=== PATIENT | male | born 1990 | race American Indian/Alaskan Native ===

== ENCOUNTER 2020-04-15 17:09 | Emergency (ER) | payer SELFPAY ==
[2020-04-15 17:43] VITALS: BP 118/72
[2020-04-15] MEDS ORDERED: traMADol 50 MG TAB PO ONE (20:39)
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
== END 2020-04-15 22:10 | disposition home or self-care (01) ==
LOC: ED 17:09
DX: S39.012A Strain of muscle, fascia and tendon of lower back, initial encounter (principal); S86.912A Strain of unspecified muscle(s) and tendon(s) at lower leg level, left leg, initial encounter; F17.200 Nicotine dependence, unspecified, uncomplicated; Z79.899 Other long term (current) drug therapy; V89.2XXA Person injured in unspecified motor-vehicle accident, traffic, initial encounter; Y93.89 Activity, other specified; Y92.410 Unspecified street and highway as the place of occurrence of the external cause; Y99.8 Other external cause status
CPT/HCPCS: 72100; 99283